=== PATIENT | male | born 1960 | race African-American/Black ===

== ENCOUNTER 2017-08-24 07:30 | Inpatient (IN) | payer OTHER ==
[~2017-08-24] VITALS: Ht 180.3 cm; Wt 148.9 kg
[~2017-08-24 07:30] MED LIST: ALBUTEROL SULF8.5 GM INH; ATROVENT HFA12.9 GM IH; CLARITIN5 MG ORAL; FLONASE ALLERG9.9 ML NS; LOPERAMIDE2 MG PO; PRILOSEC OTC20 MG ORAL; SINGULAIR10 MG ORAL
[2017-09-11] VITALS (12 sets, daily range): BP systolic 98–133; BP diastolic 65–78
[2017-09-11] MEDS ORDERED: ceFAZolin sod 2 GM in D5W 110 ML IVPB ONE (07:00)
[2017-09-11] MEDS ORDERED: EPINEPHrine 1mg/1ml Amp ONE (07:06)
[2017-09-11] MEDS ORDERED: Bupivacaine 0.5% Inj 30 ml vial INJ ONE ×2 (07:07→08:10)
[2017-09-11] MEDS ORDERED: Thrombin 5000 units spray kit TOPIC ONE ×2 (07:07→08:10)
[2017-09-11] MEDS ORDERED: Thrombin 5000 units TOPIC ONE ×2 (07:07→08:10)
[2017-09-11] MEDS ORDERED: Gelfoam Absorbable 1gm powder pkt TOPIC ONE ×2 (07:08→08:10)
[2017-09-11] MEDS ORDERED: Bacitracin 50000 Units Vial ONE (07:08)
[2017-09-11] MEDS ORDERED: Midazolam 2mg/2ml Inj ONE (07:11)
[2017-09-11] MEDS ORDERED: fentaNYL 100 mcg/2 mL IV ONE ×2 (07:11→08:45)
--- NOTE | 2017-09-11 07:12 | Pre-Procedure Note/Attestation ---
Pre-Procedure Note/Attestation Complete Prior to Procedure Procedure Narrative: left L5s1 laminotomies, medial facetectomy, foraminotomies and microdiscectomy Indications for Procedure Pre-Operative Diagnosis: lumbar radiculopathy Attestation I attest that I discussed the nature of the procedure; its benefits; risks and complications; and alternatives (and the risks and benefits of such alternatives ), prior to the procedure, with the patient (or the patient's legal visitor services representative). I attest that, if there was a reasonable possibility of needing a blood transfusion, the patient (or the patient's legal visitor services representative) was given the [facility] standardized written summary, pursuant to the [employer] [place] Blood Safety Act ([place] Health and Safety Code # 1645, as amended). I attest that I re-evaluated the patient just prior to the surgery and that there has been no change in the patient's H&P, except as documented below: Francisco Abrams MD Sep 11, 2017 07:12
[2017-09-11] MEDS ORDERED: Lidocaine 1% MPF 10mg/ml 5ml ONE (07:13)
[2017-09-11] MEDS ORDERED: Sterile Water Irrig 1000ml IRRIG ONE (07:30)
[2017-09-11] MEDS ORDERED: Succinylcholine 20mg/ml 10ml vial ONE (07:30)
[2017-09-11] MEDS ORDERED: Propofol 1,000mg/ 100ml btl IV ONE (07:30)
[2017-09-11] MEDS ORDERED: Neostigmine 1mg/ml 10ml Inj ONE (07:30)
[2017-09-11] MEDS ORDERED: NS Irrig 1000ml ONE (07:30)
[2017-09-11] MEDS ORDERED: Zemuron 50mg/5ml Inj IV ONE (07:30)
[2017-09-11] MEDS ORDERED: Glycopyrrolate 0.2mg/ml 1ml Vial ONE (07:30)
[2017-09-11] MEDS ORDERED: LR 1000ml ONE (07:30)
[2017-09-11] MEDS ORDERED: EPINEPHrine 1mg/1ml Amp INJ ONE (08:10)
[2017-09-11] MEDS ORDERED: Vancomycin 1gm inj IVPB ONE ×2 (08:10→09:53)
[2017-09-11] MEDS ORDERED: Bacitracin 50000 Units Vial IRRIG ONE (08:10)
[2017-09-11] MEDS ORDERED: Labetalol 5mg/ml 20ml vial IV ONE (08:56)
[2017-09-11] MEDS ORDERED: Morphine Sulfate 10mg/ml Inj ONE (09:17)
[2017-09-11] MEDS ORDERED: Ketorolac 30mg Inj ONE (09:18)
[2017-09-11] MEDS ORDERED: Sodium Chloride 10ml vial INJ ONE (09:18)
[2017-09-11] MEDS ORDERED: Propofol 200mg/20ml IV ONE ×3 (09:27→10:21)
[2017-09-11] MEDS ORDERED: LR 1000ml 1,000 ML IVLG SCH (09:35)
--- NOTE | 2017-09-11 09:35 | Anethesia Preoperative Eval ---
Anesthesia Pre-op PMH/ROS General Date of Evaluation: Sep 11, 2017 Time of Evaluation: 07:20 Anesthesiologist: Primo ASA Score: ASA 3 Mallampati Score Class I : Soft palate, uvula, fauces, pillars visible Class II: Soft palate, uvula, fauces visible Class III: Soft palate, base of uvula visible Class IV: Only hard plate visible Mallampati Classification: Class III Surgeon: Jose Alberto Diagnosis: Lumbar radiculopathy Surgical Procedure: L5-S1 laminotomy Anesthesia History: none Family History: no anesthesia problems Allergies: Coded Allergies: SULFA (SULFONAMIDE ANTIBIOTICS) (Verified Allergy, Severe, 05/30/17) Shortness of breath Medications: see eMAR Past Medical History Cardiovascular: Reports: HTN - off meds by now Pulmonary: Reports: asthma - stable on inhalers, JANAK - not documented; Denies: COPD, other Gastrointestinal/Genitourinary: Reports: GERD; Denies: CRI, ESRD, other Neurologic/Psychiatric: Reports: depression/anxiety, other - chronic pain; Denies: dementia, CVA, TIA Endocrine: Reports: DM - borderline; Denies: hypothyroidism, steroids, other HEENT: Denies: cataract (L), cataract (R), glaucoma, SENECA (L), SENECA (R), other Hematology/Immune: Denies: anemia, DVT, bleeding disorder, other Musculoskeletal/Integumentary: Denies: OA, RA, DJD, DDD, edema, other Other: obesity - morbid obesity PMH Narrative: as above PSxH Narrative: Colonoscopy Anesthesia Pre-op Phys. Exam Physician Exam Last Vital Signs Date Time Temp Pulse Resp B/P (MAP) Pulse Ox O2 Delivery O2 Flow Rate FiO2 09/11/17 06:53 Room Air 09/11/17 06:51 97.8 71 20 114/65 (81) 96 97.8 Constitutional: other - uncomfortable, becouse of back pain Neurologic: CN 2-12 intact Cardiovascular: RRR Respiratory: other - diminished breath sounds some wheezing bilaterally Gastrointestinal: other - obesity Airway Exam Mallampati Score: Class III MO: full Neck: short ROM: limited Teeth: intact Dentures: no upper, no lower Anesthesia Pre-op A/P Labs see chart Studies Pre-op Studies: EKG - NSR, CXR - WNL, PFTS - combination of obstrtuctive and restrictive pattern Risk Assessment & Plan Assessment: ASA 3. Morbid obesity, severe asthma combined with JANAK Plan: GA with ETT neuromonitoring Status Change Before Surgery: No Pre-Antibiotics Drug: Ancef 2 gr. Given Within 1 Hr of Incision: Yes Time Given: 08:32 Lupillo Tillman MD Sep 11, 2017 09:35
[2017-09-11] MEDS ORDERED: fentaNYL 100 mcg/2 mL IV PRN (09:45)
[2017-09-11] MEDS ORDERED: Ketorolac 30mg Inj IV PRN (09:45)
[2017-09-11] MEDS ORDERED: Meperidine 50mg/ml Inj(FOR RIGORS ONLY) IV PRN (09:45)
[2017-09-11] MEDS ORDERED: DiphenhydrAMINE 50mg/ml Inj IVP PRN (09:45)
[2017-09-11] MEDS ORDERED: Midazolam 2mg/2ml Inj IVP PRN (09:45)
[2017-09-11] MEDS ORDERED: Acetaminophen (Non formulary) 100 ML IV ONE (09:45)
--- NOTE | 2017-09-11 11:09 | Immediate Post-Op Evaluation ---
Immediate Post-Op Evalulation Immediate Post-Op Evalulation Procedure: L5-S1 laminotomy with decompression Date of Evaluation: Sep 11, 2017 Time of Evaluation: 11:07 IV Fluids: 1200 Blood Products: none Estimated Blood Loss: 50 Urinary Output: 200 Blood Pressure Systolic: 125 Blood Pressure Diastolic: 70 Pulse Rate: 78 Respiratory Rate: 22 O2 Sat by Pulse Oximetry: 98 Temperature (Fahrenheit): 97.6 Pain Score (1-10): 2 Nausea: No Vomiting: No Complications none Patient Status: awake, patent, extubated, none Hydration Status: adequate Lupillo Tillman MD Sep 11, 2017 11:09
[2017-09-11] MEDS ORDERED: Naloxone 0.4mg/ml Inj IVP PRN (12:37)
[2017-09-11] MEDS ORDERED: Morphine Sulfate 4mg/ml Inj IV PRN (12:39)
[2017-09-11] MEDS ORDERED: Norco 5mg/325mg tab ORAL PRN (12:39)
[2017-09-11] MEDS ORDERED: Morphine Sulfate 2mg/ml Inj IV PRN (12:40)
[2017-09-11] MEDS ORDERED: Loperamide 2mg cap ORAL PRN (12:45)
[2017-09-11] MEDS ORDERED: Albuterol 90mcg Inhaler 8gm INH SCH (12:45)
--- NOTE | 2017-09-11 12:50 | History and Physical ---
History of Present Illness General Date patient seen: Sep 11, 2017 Present Illness HPI 57 year old male with hx of morbid obesity, Asthma and radiculopathy admitted for L5-S1 laminotomy with decompression admitted to surgical floor for post op care. Allergies: Coded Allergies: SULFA (SULFONAMIDE ANTIBIOTICS) (Verified Allergy, Severe, 05/30/17) Shortness of breath Medication History Scheduled Albuterol Sulfate* (Albuterol Sulfate Mdi*), 2 PUFF INH NEEDED, (Reported) Fluticasone Propionate (Flonase Allergy Relief), 9.9 ML NS NEEDED, (Reported) Ipratropium [place] (Atrovent Hfa), 12.9 GM IH NEEDED, (Reported) Loperamide Hcl (Loperamide), 2 MG PO NEEDED, (Reported) Loratadine (Claritin), 5 MG ORAL DAILY, (Reported) Montelukast Sodium* (Singulair*), 10 MG ORAL DAILY, (Reported) Omeprazole Magnesium (Prilosec Otc), 20 MG ORAL DAILY, (Reported) Patient History Healthcare decision maker KINA-DAUGHTER Resuscitation status Full Code Advanced Directive on File Past Medical/Surgical History Past Medical/Surgical History: (1) History of asthma (2) Morbid obesity (3) Lumbar radiculopathy Review of Systems All Other Systems: negative except mentioned in HPI Physical Exam General Appearance: WD/WN, overweight Lines, tubes and drains: peripheral HEENT: normocephalic, atraumatic Neck: non-tender, normal alignment, supple Respiratory/Chest: chest wall non-tender, lungs clear Cardiovascular/Chest: normal peripheral pulses, normal rate Abdomen: normal bowel sounds Genitourinary/Rectal: normal genital exam Extremities: normal range of motion Skin Exam: normal pigmentation 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 normal Last 24 Hour Vital Signs Date Time Temp Pulse Resp B/P (MAP) Pulse Ox O2 Delivery O2 Flow Rate FiO2 09/11/17 12:00 97.2 77 19 119/75 97 Nasal Cannula 3 97.2 09/11/17 11:45 80 15 125/78 97 Nasal Cannula 3 09/11/17 11:36 97.2 09/11/17 11:30 82 20 126/76 97 Nasal Cannula 3 09/11/17 11:20 80 20 118/65 98 Nasal Cannula 3 09/11/17 11:10 69 20 125/70 100 Simple Mask 6 09/11/17 11:09 207.7 78 22 98 09/11/17 11:00 79 20 113/74 100 Simple Mask 6 09/11/17 10:53 97.8 80 22 112/73 99 Simple Mask 6 97.8 09/11/17 06:53 Room Air 09/11/17 06:51 97.8 71 20 114/65 (81) 96 97.8 Height (Feet): 5 Height (Inches): 11.00 Weight (Pounds): 329 Medications Current Medications Medications (Trade) Dose Ordered Sig/Miguel A Route PRN Reason Start Time Stop Time Status Last Admin Dose Admin Acetaminophen/ Hydrocodone Bitart ([place] 5/325) 1 tab Q3H PRN ORAL pain score 1-3 09/11/17 12:39 09/18/17 12:38 Acetaminophen/ Hydrocodone Bitart ([place] 7.5/325) 1 tab Q3H PRN ORAL pain score 4-6 09/11/17 12:38 09/18/17 12:37 Acetaminophen/ Hydrocodone Bitart ([place] 7.5/325) 2 tab Q3H PRN ORAL pain scale 7-10 09/11/17 12:38 09/18/17 12:37 Cefazolin Sodium 1 gm/Dextrose 55 ml @ 110 mls/hr Q8H IV 09/11/17 16:30 09/12/17 08:59 Dextrose/Sodium Chloride 1,000 ml @ 100 mls/hr Q10H IV 09/11/17 12:37 10/11/17 12:36 Docusate Sodium (Colace) 100 mg TWICE A DAY ORAL 09/11/17 18:00 10/11/17 17:59 Morphine Sulfate (Morphine Sulfate) 2 mg Q4H PRN IV Mild Pain (Pain Scale 1-3) 09/11/17 12:40 09/18/17 12:39 Morphine Sulfate (Morphine Sulfate) 4 mg Q3H PRN IV Severe Pain (Pain Scale 7-10) 09/11/17 12:39 09/18/17 12:38 Morphine Sulfate (Morphine Sulfate) 4 mg Q4H PRN IV Moderate Pain (Pain Scale 4-6) 09/11/17 12:39 09/18/17 12:38 Naloxone HCl (Narcan) 0.1 mg PRN PRN IVP RR<12/min, pt unarousable 09/11/17 12:37 10/11/17 12:36 Assessment/Plan Problem List: (1) L5-S1 laminotomy with decompression (2) Lumbar radiculopathy ICD Codes: M54.16 - Radiculopathy, lumbar region SNOMED: 133564930 (3) Morbid obesity ICD Codes: E66.01 - Morbid (severe) obesity due to excess calories SNOMED: 450096943 (4) History of asthma ICD Codes: Z87.09 - Personal history of other diseases of the respiratory system SNOMED: 682389911 Assessment/Plan symptomatic treatment pain management respiratory treatment dvt prophylaxis Blaine Neal MD Sep 11, 2017 12:50
[2017-09-11] MEDS: D5 1/2NS 1,000 ML IV SCH (13:08)
[2017-09-11] MEDS: ceFAZolin sod 1 GM in D5W 55 ML IV SCH (16:21)
[2017-09-11] MEDS: HYDROcodone/Acetamin 7.5/325 tab ORAL PRN (16:44)
--- NOTE | 2017-09-11 16:50 | Diagnostic Imaging Report ---
Indication: Pain and tingling Technique: Intraoperative fluoroscopic images Comparison: None Operating surgeon: Chanel Total fluoroscopy time: 20.9 seconds Total fluoroscopy dose: 22.82 mGy Findings: 2 intraoperative fluoroscopic images submitted to PACS. Images are severely limited due to underpenetration. Surgical instrument is noted projecting over the expected area of L5-S1 on the second submitted view. Impression: Intraoperative fluoroscopic images submitted for archival the PACS. Please see operative report.
--- NOTE | 2017-09-11 17:00 | Operative Note - Dictated ---
DATE OF OPERATION: 09/11/2017 PREOPERATIVE DIAGNOSIS: L5-S1 disk protrusion with stenosis and left lower extremity radiculopathy. POSTOPERATIVE DIAGNOSIS: L5-S1 disk protrusion with stenosis and left lower extremity radiculopathy. PROCEDURE PERFORMED: 1. Left-sided L5-S1 medial facetectomy, interlumbar laminotomy, foraminotomy, and microdiscectomy and decompression of the exiting L5 nerve root and traversing S1 nerve root. 2. Intraoperative use of microscope for microdissection. 3. Intraoperative use of fluoroscopy. SURGEON: Francisco Abrams M.D. MOLD PRESS OPERATOR: Castro Gruber M.D. ANESTHESIA: General endotracheal anesthesia. ANESTHESIOLOGIST: Lupillo Tillman M.D. INTRAOPERATIVE FINDINGS: L5-S1 disk protrusion with foraminal stenosis to the exiting left L5 nerve root and interforaminal extension of the disk protrusion causing stenosis and impingement. ESTIMATED BLOOD LOSS: 25 mL. FLUIDS: One liter. INDICATIONS: This is a pleasant gentleman, who had failed nonoperative treatment. Option for above treatment was given. Risks, alternatives, and benefits were discussed with the patient. The patient reported continued back pain with pain into the left lower extremity with numbness and pins and needle sensation. Examination revealed tenderness to palpation over the lumbar paravertebral muscles. Positive straight leg raise on the left with 25 degrees weakness in the left EHL and peroneus longus 4/5, and decreased light touch over the left posterolateral side. Option for above treatment was given. Risks, alternatives, and benefits were discussed and the patient wished to proceed. DESCRIPTION OF OPERATION: The patient was brought into the operating room supine on the stretcher. Subsequently, appropriate IV lines were placed. A 3 g of Ancef was administered. Anesthesia was induced and the patient was successfully intubated. Sequential compression devices were placed onto the bilateral lower extremities. SSEP neurophysiological leads were placed and by the end of the case, there was a 50% improvement in the amplitude of the left L5 nerve root. The patient was gently turned over prone on the Juan Jose table. Before that, we had a Caban placed under sterile conditions. All bony prominences were well padded and the abdomen was assured to lay freely. The preoperative fluoroscopy was used to find the L5-S1 interspace and at this point, the patient's back was prepped and draped in the usual sterile fashion with alcohol, chlorhexidine scrub, and ChloraPrep [place] draping. Me and my project administrative assistant were prepped and gowned as well. At this point, the intraoperatively sterilely draped microscope was brought into the field for all of the operation. A scalpel was used to incise the skin and with monopolar cautery, a subperiosteal dissection of the laminas at L5 and S1 was done and the Garcia retractor system was put into place. A radiopaque marker was placed at the lower pedicle level and lateral fluoroscopy revealed the left S1 pedicle and thus, the L5-S1 interspace was positively identified. At this point, attention was diverted to the decompression with a high-speed drill, straight and curved curettes, #1 through #5 Kerrison punches, a Juan C probe, a dental probe, an interlumbar laminotomy, medial facetectomy, and foraminotomy was accomplished. The ligamentum flavum was removed. A complete decompression of the lateral recess was done. There was over growth of the medial aspect of the superior articular facet, positive impingement of the traversing S1 nerve root, and a complete decompression of the lateral recess entailed. The foramen was initially checked and was found to be stenotic with curved curette and #1 and #2 Kerrison punches, a foraminotomy was done for the exiting L5 nerve root. Amplitude of the L5 nerve root improved by 50%. At this point, bipolar cautery was used to cauterize the epidural veins and with a nerve root retractor and a Kunia 4 retractor, the neural elements were carefully medially retracted including the S1 nerve. The L5 nerve was found to be patent in the foramen. There was a disk protrusion that was central, left paracentral, and extending into the intraforaminal area causing impingement of the exiting L5 nerve root. With a #11 blade, a horizontal slit incision was made into the posterior anulus of the disc and with Lobo curette Herrera instrument, Paco, chance, Lobo curette, and nerve hook, a diskectomy was accomplished until the floor of the canal was flat and there was no further impingement on the neural elements. At this space, irrigation was done. All disc debris was removed. At this point, attention was diverted to doing a Valsalva. Valsalva at 40 mmHg was done. There was no CSF leak and now attention was diverted to closure. Bipolar cautery, Gelfoam, and thrombin was used for meticulous hemostasis. The dorsal lumbar fascia was closed with #1 Vicryl sutures in a watertight interrupted fashion. The microscope by the way was used for microdissection of the nerve as well as the common dural sac. Once this was accomplished, the dorsal lumbar fascia was closed in a watertight fashion. A suprafascial drain, Hemovac drain was placed. A 1 g of vancomycin powder was placed subfascially and suprafascially. The subcuticular and subdural layers were closed with 2-0 Vicryl sutures. The skin was closed with Dermabond. Sterile dressing tape was placed. All sponge, needle, and instrument counts were correct. The patient was turned supine and extubated in stable condition. He was found to be neurovascularly intact and was admitted to the hospital for monitoring. Francisco Abrams M.D. DR: ELOY JOB#: [id number] CC:
[2017-09-11] MEDS: Docusate 100mg cap ORAL SCH (18:00)
[2017-09-11] MEDS: Montelukast 10mg tablet ORAL SCH (21:06)
[2017-09-12] VITALS: BP 116/66
[2017-09-12] MEDS: ceFAZolin sod 1 GM in D5W 55 ML IV SCH ×2 (00:11→09:15)
[2017-09-12] MEDS: D5 1/2NS 1,000 ML IV SCH ×2 (00:11→09:15)
[2017-09-12 04:05] VITALS: BP 120/65
[2017-09-12] MEDS: Morphine Sulfate 4mg/ml Inj IV PRN ×2 (06:04→08:24)
[2017-09-12 08:00] VITALS: BP 115/64
[2017-09-12] MEDS: Docusate 100mg cap ORAL SCH ×2 (09:00→17:11)
--- NOTE | 2017-09-12 10:08 | 48 Hour Post Anesthesia Eval ---
Post Anesthesia Evaluation Procedure: L5-S1 laminotomy with decompression Date of Evaluation: Sep 12, 2017 Time of Evaluation: 10:07 Blood Pressure Systolic: 116 0: 58 Pulse Rate: 72 Respiratory Rate: 22 Temperature (Fahrenheit): 97.6 O2 Sat by Pulse Oximetry: 98 Airway: patent Nausea: No Vomiting: No Pain Intensity: 3 Hydration Status: adequate Cardiopulmonary Status: stable Mental Status/LOC: patient returned to baseline Follow-up Care/Observations: n/a Post-Anesthesia Complications: none Follow-up care needed: N/A Lupillo Tillman MD Sep 12, 2017 10:08
--- NOTE | 2017-09-12 11:43 | Pulmonology Progress Note ---
Assessment/Plan Problems: (1) L5-S1 laminotomy with decompression (2) Lumbar radiculopathy (3) Morbid obesity (4) History of asthma Assessment/Plan pain control symptomatic treatment dvt prophylaxis respiratory treatment prn. Subjective ROS Limited/Unobtainable: No Constitutional: Reports: no symptoms HEENT: Repors: no symptoms Allergies: Coded Allergies: SULFA (SULFONAMIDE ANTIBIOTICS) (Verified Allergy, Severe, 05/30/17) Shortness of breath Objective Last 24 Hour Vital Signs Date Time Temp Pulse Resp B/P (MAP) Pulse Ox O2 Delivery O2 Flow Rate FiO2 09/12/17 10:08 207.7 72 22 98 09/12/17 09:00 Room Air 09/12/17 08:54 97.5 09/12/17 08:24 97.5 09/12/17 08:00 99.6 87 20 115/64 (81) 95 99.6 09/12/17 04:05 97.5 80 17 120/65 (83) 95 97.5 09/12/17 00:00 97.7 76 19 116/66 (83) 95 97.7 09/11/17 21:00 Room Air 09/11/17 20:00 97.3 73 18 133/77 (95) 95 97.3 09/11/17 16:00 97.7 71 21 107/67 (80) 97 97.7 09/11/17 14:00 97.6 71 20 98/65 (76) 97 97.6 09/11/17 12:30 97.5 81 20 105/65 (78) 97 97.5 09/11/17 12:00 97.2 77 19 119/75 97 Nasal Cannula 3 97.2 09/11/17 11:45 80 15 125/78 97 Nasal Cannula 3 Intake and Output 09/11/17 09/12/17 19:00 07:00 Intake Total 340 ml 1585 ml Output Total 530 ml 60 ml Balance -190 ml 1525 ml Intake Oral 240 ml 480 ml IV Total 100 ml 1105 ml Output Urine Total 500 ml Drainage Total 30 ml 60 ml # Voids 2 General Appearance: WD/WN HEENT: normocephalic, atraumatic Respiratory/Chest: chest wall non-tender, lungs clear Cardiovascular: normal peripheral pulses, normal rate Abdomen: normal bowel sounds, soft, non tender Genitourinary: normal external genitalia Skin: no rash Lymphatic: no neck adenopathy Current Medications Medications (Trade) Dose Ordered Sig/Miguel A Route PRN Reason Start Time Stop Time Status Last Admin Dose Admin Acetaminophen/ Hydrocodone Bitart ([place] 5/325) 1 tab Q3H PRN ORAL pain score 1-3 09/11/17 12:39 09/18/17 12:38 Acetaminophen/ Hydrocodone Bitart ([place] 7.5/325) 1 tab Q3H PRN ORAL pain score 4-6 09/11/17 12:38 09/18/17 12:37 Acetaminophen/ Hydrocodone Bitart ([place] 7.5/325) 2 tab Q3H PRN ORAL pain scale 7-10 09/11/17 12:38 09/18/17 12:37 09/11/17 16:44 Albuterol Sulfate (Proventil MDI) 2 puff NEEDED INH 09/11/17 12:45 10/11/17 12:44 Dextrose/Sodium Chloride 1,000 ml @ 100 mls/hr Q10H IV 09/11/17 12:37 10/11/17 12:36 09/12/17 09:15 Docusate Sodium (Colace) 100 mg TWICE A DAY ORAL 09/11/17 18:00 10/11/17 17:59 Fexofenadine HCl (Dianelys) 60 mg TWICE A DAY ORAL 09/11/17 23:45 10/11/17 23:44 09/12/17 00:11 Loperamide HCl (Imodium) 2 mg Q6H PRN ORAL diarrhea 09/11/17 12:45 10/11/17 12:44 Montelukast Sodium (Singulair) 10 mg Q24H ORAL 09/11/17 21:00 10/11/17 20:59 09/11/17 21:06 Morphine Sulfate (Morphine Sulfate) 2 mg Q4H PRN IV Mild Pain (Pain Scale 1-3) 09/11/17 12:40 09/18/17 12:39 Morphine Sulfate (Morphine Sulfate) 4 mg Q3H PRN IV Severe Pain (Pain Scale 7-10) 09/11/17 12:39 09/18/17 12:38 Morphine Sulfate (Morphine Sulfate) 4 mg Q4H PRN IV Moderate Pain (Pain Scale 4-6) 09/11/17 12:39 09/18/17 12:38 09/12/17 08:24 Naloxone HCl (Narcan) 0.1 mg PRN PRN IVP RR<12/min, pt unarousable 09/11/17 12:37 10/11/17 12:36 Ondansetron HCl (Zofran) 4 mg Q6H PRN IVP Nausea & Vomiting 09/12/17 08:00 10/12/17 07:59 Blaine Neal MD Sep 12, 2017 11:43
[2017-09-12 12:00] VITALS: BP 108/49
[2017-09-12 16:00] VITALS: BP 115/71
[2017-09-12] MEDS: HYDROcodone/Acetamin 7.5/325 tab ORAL PRN ×3 (16:32→20:41)
[2017-09-12 20:00] VITALS: BP 113/52
[2017-09-12] MEDS: Montelukast 10mg tablet ORAL SCH (20:40)
[2017-09-13] VITALS (7 sets, daily range): BP systolic 95–134; BP diastolic 60–82
[2017-09-13] MEDS: HYDROcodone/Acetamin 7.5/325 tab ORAL PRN ×4 (04:17→20:59)
[2017-09-13] MEDS: Docusate 100mg cap ORAL SCH ×2 (08:23→17:18)
--- NOTE | 2017-09-13 12:51 | Pulmonology Progress Note ---
Assessment/Plan Problems: (1) L5-S1 laminotomy with decompression (2) Lumbar radiculopathy (3) Morbid obesity (4) History of asthma Assessment/Plan add albuterol PO, as pt requested pain control symptomatic treatment dvt prophylaxis respiratory treatment prn. dc planning Subjective ROS Limited/Unobtainable: No Constitutional: Reports: no symptoms HEENT: Repors: no symptoms Respiratory: Reports: no symptoms Allergies: Coded Allergies: SULFA (SULFONAMIDE ANTIBIOTICS) (Verified Allergy, Severe, 05/30/17) Shortness of breath Objective Last 24 Hour Vital Signs Date Time Temp Pulse Resp B/P (MAP) Pulse Ox O2 Delivery O2 Flow Rate FiO2 09/13/17 11:47 97.7 78 20 134/71 (92) 97 97.7 09/13/17 07:51 99.0 78 20 95/64 (74) 99 99.0 09/13/17 07:00 Room Air 09/13/17 05:16 98.2 09/13/17 04:17 98.2 09/13/17 04:00 98.6 82 19 129/73 (91) 97 98.6 09/13/17 00:00 98.2 69 19 113/60 (77) 97 98.2 09/12/17 21:00 Room Air 09/12/17 20:41 98.6 09/12/17 20:00 99.1 77 18 113/52 (72) 97 99.1 09/12/17 17:45 98.6 89 98.6 09/12/17 16:35 101.0 09/12/17 16:00 101.0 100 20 115/71 (86) 100 101.0 09/12/17 13:00 97.6 Intake and Output 09/12/17 09/13/17 19:00 07:00 Intake Total 1080 ml 1040 ml Output Total 50 ml 20 ml Balance 1030 ml 1020 ml Intake Oral 480 ml 1040 ml IV Total 600 ml Drainage Total 50 ml 20 ml # Voids 4 4 General Appearance: WD/WN HEENT: normocephalic, atraumatic Respiratory/Chest: chest wall non-tender, lungs clear Cardiovascular: normal peripheral pulses, normal rate Genitourinary: normal external genitalia Extremities: no clubbing Skin: no rash Microbiology Date/Time Source Procedure Growth Status 09/11/17 06:45 Nasal Nares MRSA Culture - Final NO METHICILLIN RESISTANT STAPH AUREUS... Complete Current Medications Medications (Trade) Dose Ordered Sig/Miguel A Route PRN Reason Start Time Stop Time Status Last Admin Dose Admin Acetaminophen (Tylenol) 650 mg Q4H PRN ORAL Mild Pain/Temp > 100.5 09/12/17 16:30 10/12/17 16:29 Acetaminophen/ Hydrocodone Bitart ([place] 5/325) 1 tab Q3H PRN ORAL pain score 1-3 09/11/17 12:39 09/18/17 12:38 Acetaminophen/ Hydrocodone Bitart ([place] 7.5/325) 1 tab Q3H PRN ORAL pain score 4-6 09/11/17 12:38 09/18/17 12:37 Acetaminophen/ Hydrocodone Bitart ([place] 7.5/325) 2 tab Q3H PRN ORAL pain scale 7-10 09/11/17 12:38 09/18/17 12:37 09/13/17 10:02 Albuterol Sulfate (Proventil MDI) 2 puff NEEDED INH 09/11/17 12:45 10/11/17 12:44 Docusate Sodium (Colace) 100 mg TWICE A DAY ORAL 09/11/17 18:00 10/11/17 17:59 09/13/17 08:23 Fexofenadine HCl (Dianelys) 60 mg TWICE A DAY ORAL 09/11/17 23:45 10/11/17 23:44 09/13/17 08:23 Loperamide HCl (Imodium) 2 mg Q6H PRN ORAL diarrhea 09/11/17 12:45 10/11/17 12:44 Montelukast Sodium (Singulair) 10 mg Q24H ORAL 09/11/17 21:00 10/11/17 20:59 09/12/17 20:40 Morphine Sulfate (Morphine Sulfate) 2 mg Q4H PRN IV Mild Pain (Pain Scale 1-3) 09/11/17 12:40 09/18/17 12:39 Morphine Sulfate (Morphine Sulfate) 4 mg Q3H PRN IV Severe Pain (Pain Scale 7-10) 09/11/17 12:39 09/18/17 12:38 09/12/17 12:30 Morphine Sulfate (Morphine Sulfate) 4 mg Q4H PRN IV Moderate Pain (Pain Scale 4-6) 09/11/17 12:39 09/18/17 12:38 09/12/17 08:24 Naloxone HCl (Narcan) 0.1 mg PRN PRN IVP RR<12/min, pt unarousable 09/11/17 12:37 10/11/17 12:36 Ondansetron HCl (Zofran) 4 mg Q6H PRN IVP Nausea & Vomiting 09/12/17 08:00 10/12/17 07:59 Blaine Neal MD Sep 13, 2017 12:50
[2017-09-13] MEDS ORDERED: D5 1/2NS 1000ml IV ONE (18:37)
--- NOTE | 2017-09-13 18:59 | General Progress Note ---
Progress Note Progress Note Doing well min lbp leg pain much improved ambulating a and o times 3 inc cdi dressing changed hv out 5/5 le calves soft and nt ambulating doing well post op oob and pt home planning pain management follow up in the office in 7 to 10 days. Francisco Abrams MD Sep 13, 2017 18:59
[2017-09-13] MEDS: Montelukast 10mg tablet ORAL SCH (20:57)
[2017-09-14 04:00] VITALS: BP 115/63
[2017-09-14] MEDS: HYDROcodone/Acetamin 7.5/325 tab ORAL PRN ×3 (06:27→20:36)
[2017-09-14] MEDS: Docusate 100mg cap ORAL SCH ×2 (06:30→17:09)
[2017-09-14 08:00] VITALS: BP 139/80
[2017-09-14 12:00] VITALS: BP 135/85
[2017-09-14] MEDS: Albuterol 2mg Tab ORAL SCH ×3 (12:52→21:36)
--- NOTE | 2017-09-14 13:30 | Pulmonology Progress Note ---
Assessment/Plan Problems: (1) L5-S1 laminotomy with decompression (2) Lumbar radiculopathy (3) Morbid obesity (4) History of asthma Assessment/Plan doing better add albuterol PO, as pt requested pain control symptomatic treatment dvt prophylaxis respiratory treatment prn. dc planning for today Subjective ROS Limited/Unobtainable: No Constitutional: Reports: no symptoms HEENT: Repors: no symptoms Respiratory: Reports: no symptoms Allergies: Coded Allergies: SULFA (SULFONAMIDE ANTIBIOTICS) (Verified Allergy, Severe, 05/30/17) Shortness of breath Objective Last 24 Hour Vital Signs Date Time Temp Pulse Resp B/P (MAP) Pulse Ox O2 Delivery O2 Flow Rate FiO2 09/14/17 12:00 98.0 75 20 135/85 (102) 97 98.0 09/14/17 08:02 Room Air 09/14/17 08:00 98.4 83 20 139/80 (99) 97 98.4 09/14/17 04:00 98.7 65 17 115/63 (80) 98 98.7 09/13/17 21:00 Room Air 09/13/17 20:00 97.8 78 17 127/82 (97) 96 97.8 09/13/17 15:41 98.7 84 20 129/76 (93) 99 98.7 Intake and Output 09/13/17 09/14/17 19:00 07:00 Intake Total 920 ml 500 ml Balance 920 ml 500 ml Intake Oral 920 ml 500 ml # Voids 1 2 General Appearance: WD/WN HEENT: normocephalic Respiratory/Chest: chest wall non-tender, lungs clear Cardiovascular: normal peripheral pulses, regular rhythm Abdomen: normal bowel sounds, no organomegaly Current Medications Medications (Trade) Dose Ordered Sig/Miguel A Route PRN Reason Start Time Stop Time Status Last Admin Dose Admin Acetaminophen (Tylenol) 650 mg Q4H PRN ORAL Mild Pain/Temp > 100.5 09/12/17 16:30 10/12/17 16:29 Acetaminophen/ Hydrocodone Bitart ([place] 5/325) 1 tab Q3H PRN ORAL pain score 1-3 09/11/17 12:39 09/18/17 12:38 Acetaminophen/ Hydrocodone Bitart ([place] 7.5/325) 1 tab Q3H PRN ORAL pain score 4-6 09/11/17 12:38 7/30/18 12:37 Acetaminophen/ Hydrocodone Bitart ([place] 7.5/325) 2 tab Q3H PRN ORAL pain scale 7-10 09/11/17 12:38 09/18/17 12:37 09/14/17 12:56 Albuterol Sulfate (Proventil MDI) 2 puff NEEDED INH 09/11/17 12:45 10/11/17 12:44 Albuterol Sulfate (Proventil) 2 mg FOUR TIMES A DAY ORAL 09/14/17 13:00 10/14/17 12:59 09/14/17 12:52 Docusate Sodium (Colace) 100 mg TWICE A DAY ORAL 09/11/17 18:00 10/11/17 17:59 09/14/17 06:30 Fexofenadine HCl (Dianelys) 60 mg TWICE A DAY ORAL 09/11/17 23:45 10/11/17 23:44 09/14/17 07:55 Loperamide HCl (Imodium) 2 mg Q6H PRN ORAL diarrhea 09/11/17 12:45 10/11/17 12:44 Montelukast Sodium (Singulair) 10 mg Q24H ORAL 09/11/17 21:00 10/11/17 20:59 09/13/17 20:57 Morphine Sulfate (Morphine Sulfate) 2 mg Q4H PRN IV Mild Pain (Pain Scale 1-3) 09/11/17 12:40 09/18/17 12:39 Morphine Sulfate (Morphine Sulfate) 4 mg Q3H PRN IV Severe Pain (Pain Scale 7-10) 09/11/17 12:39 09/18/17 12:38 09/12/17 12:30 Morphine Sulfate (Morphine Sulfate) 4 mg Q4H PRN IV Moderate Pain (Pain Scale 4-6) 09/11/17 12:39 09/18/17 12:38 09/12/17 08:24 Naloxone HCl (Narcan) 0.1 mg PRN PRN IVP RR<12/min, pt unarousable 09/11/17 12:37 10/11/17 12:36 Ondansetron HCl (Zofran) 4 mg Q6H PRN IVP Nausea & Vomiting 09/12/17 08:00 10/12/17 07:59 Blaine Neal MD 26, 2018 13:30
[2017-09-14] MEDS ORDERED: Lactulose 20gm/30ml UDC ORAL SCH (14:00)
[2017-09-14 16:00] VITALS: BP 124/60
[2017-09-14 19:56] VITALS: BP 125/63
[2017-09-14] MEDS: Montelukast 10mg tablet ORAL SCH (21:36)
[2017-09-15] VITALS (7 sets, daily range): BP systolic 97–153; BP diastolic 42–75
[2017-09-15] MEDS: HYDROcodone/Acetamin 7.5/325 tab ORAL PRN ×5 (00:56→21:04)
[2017-09-15] MEDS: Docusate 100mg cap ORAL SCH ×2 (08:57→17:35)
[2017-09-15] MEDS: Albuterol 2mg Tab ORAL SCH ×4 (08:57→21:23)
--- NOTE | 2017-09-15 12:45 | Pulmonology Progress Note ---
Assessment/Plan Problems: (1) L5-S1 laminotomy with decompression (2) Lumbar radiculopathy (3) Morbid obesity (4) History of asthma Assessment/Plan doing better,s till sore pain control symptomatic treatment dvt prophylaxis respiratory treatment prn. dc planning for tomorrow Subjective ROS Limited/Unobtainable: No Allergies: Coded Allergies: SULFA (SULFONAMIDE ANTIBIOTICS) (Verified Allergy, Severe, 05/30/17) Shortness of breath Objective Last 24 Hour Vital Signs Date Time Temp Pulse Resp B/P (MAP) Pulse Ox O2 Delivery O2 Flow Rate FiO2 09/15/17 12:42 98.2 61 18 107/42 (63) 98.2 09/15/17 09:57 98.0 09/15/17 09:00 Room Air 09/15/17 08:58 98.0 09/15/17 08:00 98.1 75 20 115/58 (77) 98.1 09/15/17 04:10 98.0 61 20 113/60 (77) 97 98.0 09/15/17 04:00 98.1 61 20 113/60 (77) 97 98.1 09/15/17 00:00 97.8 78 20 105/55 (72) 95 97.8 09/14/17 21:00 Room Air 09/14/17 19:56 97.0 76 20 125/63 (83) 97 97.0 09/14/17 16:00 98.9 75 20 124/60 (81) 97 98.9 Intake and Output 09/14/17 09/15/17 19:00 07:00 Intake Total 600 ml 300 ml Output Total 15 ml Balance 600 ml 285 ml Intake Oral 600 ml 300 ml Drainage Total 15 ml # Voids 3 3 HEENT: normocephalic Respiratory/Chest: chest wall non-tender, lungs clear Cardiovascular: normal peripheral pulses, normal rate Abdomen: normal bowel sounds, soft, non tender Genitourinary: normal external genitalia Current Medications Medications (Trade) Dose Ordered Sig/Miguel A Route PRN Reason Start Time Stop Time Status Last Admin Dose Admin Acetaminophen (Tylenol) 650 mg Q4H PRN ORAL Mild Pain/Temp > 100.5 09/12/17 16:30 10/12/17 16:29 Acetaminophen/ Hydrocodone Bitart ([place] 5/325) 1 tab Q3H PRN ORAL pain score 1-3 09/11/17 12:39 09/18/17 12:38 Acetaminophen/ Hydrocodone Bitart ([place] 7.5/325) 1 tab Q3H PRN ORAL pain score 4-6 09/11/17 12:38 09/18/17 12:37 Acetaminophen/ Hydrocodone Bitart ([place] 7.5/325) 2 tab Q3H PRN ORAL pain scale 7-10 09/11/17 12:38 09/18/17 12:37 09/15/17 08:58 Albuterol Sulfate (Proventil MDI) 2 puff NEEDED INH 09/11/17 12:45 10/11/17 12:44 Albuterol Sulfate (Proventil) 2 mg FOUR TIMES A DAY ORAL 09/14/17 13:00 10/14/17 12:59 09/15/17 12:33 Docusate Sodium (Colace) 100 mg TWICE A DAY ORAL 09/11/17 18:00 10/11/17 17:59 09/15/17 08:57 Fexofenadine HCl (Dianelys) 60 mg TWICE A DAY ORAL 09/11/17 23:45 10/11/17 23:44 09/15/17 08:57 Loperamide HCl (Imodium) 2 mg Q6H PRN ORAL diarrhea 09/11/17 12:45 10/11/17 12:44 Montelukast Sodium (Singulair) 10 mg Q24H ORAL 09/11/17 21:00 10/11/17 20:59 09/14/17 21:36 Morphine Sulfate (Morphine Sulfate) 2 mg Q4H PRN IV Mild Pain (Pain Scale 1-3) 09/11/17 12:40 09/18/17 12:39 Morphine Sulfate (Morphine Sulfate) 4 mg Q3H PRN IV Severe Pain (Pain Scale 7-10) 09/11/17 12:39 09/18/17 12:38 09/12/17 12:30 Morphine Sulfate (Morphine Sulfate) 4 mg Q4H PRN IV Moderate Pain (Pain Scale 4-6) 09/11/17 12:39 09/18/17 12:38 09/12/17 08:24 Naloxone HCl (Narcan) 0.1 mg PRN PRN IVP RR<12/min, pt unarousable 09/11/17 12:37 10/11/17 12:36 Ondansetron HCl (Zofran) 4 mg Q6H PRN IVP Nausea & Vomiting 09/12/17 08:00 10/12/17 07:59 Blaine Neal MD Sep 15, 2017 12:45
[2017-09-15] MEDS: Montelukast 10mg tablet ORAL SCH (21:23)
[2017-09-16] VITALS: BP 126/73
[2017-09-16] MEDS: HYDROcodone/Acetamin 7.5/325 tab ORAL PRN ×4 (00:08→13:04)
[2017-09-16 04:00] VITALS: BP 118/61
[2017-09-16 08:00] VITALS: BP 108/63
[2017-09-16] MEDS: Docusate 100mg cap ORAL SCH (09:04)
[2017-09-16] MEDS: Albuterol 2mg Tab ORAL SCH ×2 (09:04→12:34)
[2017-09-16] MEDS ORDERED: ALBUTEROL SULFAT2 MG PO ×2 (09:25)
[2017-09-16] MEDS ORDERED: NORCO 5-325 TA1 EACH ORAL (09:26)
[2017-09-16] MEDS ORDERED: NAPROXEN250 MG ORAL (09:27)
[2017-09-16] MEDS ORDERED: CLARITIN5 MG ORAL (09:54)
[2017-09-16] MEDS ORDERED: PRILOSEC OTC20 MG ORAL (09:54)
[2017-09-16] MEDS ORDERED: SINGULAIR10 MG ORAL (09:54)
[2017-09-16 12:00] VITALS: BP 114/66
--- NOTE | 2017-09-19 13:34 | Discharge Summary ---
Discharge Summary Hospital Course Date of Admission Sep 11, 2017 at 05:53 Date of Discharge Sep 16, 2017 at 15:30 Admitting Diagnosis L5-S1 disk protrusion with stenosis and left lower extremity radiculopathy. Reason for Hospitalization: elective surgery HPI Jimmy Leyva is a 57 year old male who was admitted on Sep 11, 2017 at 05:53 for L5-S1 disk protrusion with stenosis and left lower extremity radiculopathy. Patient was admitted for elective surgery. Consultations dr Neal IM Procedures s/p 09/11/[address] Abrams 1. Left-sided L5-S1 medial facetectomy, interlumbar laminotomy, foraminotomy, and microdiscectomy and decompression of the exiting L5 nerve root and traversing S1 nerve root. 2. Intraoperative use of microscope for microdissection. 3. Intraoperative use of fluoroscopy. Hospital Course s/p surgery course of recovery uneventful neurovascularly intact incision c/d/i initially with drain, output closely monitored, drain out prior to discharge pain management, pain addressed and controlled out of bed with physical therapy fall precaution maintained, ambulated freely incentive spirometry while in the bed initially IV fluids, until tolerated diet able to tolerate diet voided freely discharge instruction provided scripts provided outpatient follow-up with surgeon in 7-10 days FINAL DIAGNOSES -L5-S1 disk protrusion with stenosis and left lower extremity radiculopathy. - s/p L5-S1 laminotomy with decompression - history of asthma - morbid obesity Discharge Medications Continued Medications: Albuterol Sulfate* (Albuterol Sulfate*) 2 Mg Tablet 2 MG PO Q6HR, #60 TAB 0 Refills (This prescription has been renewed) Hydrocodone Bit/Acetaminophen 5-325* ([place] 5-325*) 1 Each Tablet 1 TAB ORAL Q4H PRN for For Pain, #40 TAB 0 Refills (This prescription has been renewed) Loratadine (Claritin) 5 Mg Tab.rapdis 5 MG ORAL DAILY, TAB (This prescription has been renewed) Montelukast Sodium* (Singulair*) 10 Mg Tablet 10 MG ORAL DAILY, TAB (This prescription has been renewed) Naproxen* (Naprosyn*) 250 Mg Tablet 500 MG ORAL TWICE A DAY for 40 Days, #60 TAB 0 Refills (This prescription has been renewed) Omeprazole Magnesium (Prilosec Otc) 20 Mg Tablet.dr 20 MG ORAL DAILY, TAB (This prescription has been renewed) Discharge Condition Upon Discharge: stable Discharge Disposition Patient was discharged to Home (01) Discharge Instructions Discharge Instructions Special Instructions I have been assigned to complete a D/C Summary on this account. I was not involved in the patient management Glenys Mosley NP Sep 19, 2017 13:34
== END 2017-09-16 15:30 | disposition home or self-care (01) | DRG 519 ==
LOC: SDSOVERFLO 09-11 05:53 → 3E 09-11 12:27
PROC: 0SB40ZZ Excision of Lumbosacral Disc, Open Approach (ICD-10-PCS; principal; 2017-09-11 07:30)
PROC: 01NB0ZZ Release Lumbar Nerve, Open Approach (ICD-10-PCS; principal; 2017-09-11 07:30)
DX: M51.17 Intervertebral disc disorders with radiculopathy, lumbosacral region (principal); Z68.42 Body mass index [BMI] 45.0-49.9, adult; M48.07 Spinal stenosis, lumbosacral region; E66.01 Morbid (severe) obesity due to excess calories; Z88.2 Allergy status to sulfonamides; J45.909 Unspecified asthma, uncomplicated; I10 Essential (primary) hypertension
CPT/HCPCS: 36415; 72020; 76000; 86850; 86900; 86901; 87081; 94003; 94150; J2250; J2405; J2710